=== PATIENT | male | born 1950 | race Caucasian/White ===

== ENCOUNTER 2016-11-30 08:52 | Emergency (ER) | payer OTHER ==
[2016-11-30 09:13] VITALS: BMI 25.7
--- NOTE | 2016-11-30 09:43 | PDOC ---
History of Present Illness - General Chief Complaint: Urinary Problem Stated Complaint: POST-OP COMPLICATIONS Time Seen by Provider: 11/30/16 09:20 History Source: Patient Exam Limitations: No Limitations - History of Present Illness Travel History: No Initial Comments: 11/30/16 10:16 Patient status post BPH procedure on Thursday at [facility] per urology group, Fuentes was removed on , since that time patient has noted some intermittent small clots but this morning woke up unable to urinate with some small dribbles and discomfort. Denies fever, denies nausea vomiting, denies any pain or burning. Is currently taking Levaquin as prescribed on his fifth day Timing/Duration: reports: getting worse Quality: reports: moderate, severe Pain Radiation: reports: no radiation Alleviating Factors: improves with: None Past History - Travel Traveled outside of the country in the last 30 days: No Close contact w/someone who was outside of country & ill: No - Past Medical History Allergies/Adverse Reactions: Allergies Allergy/AdvReac Type Severity Reaction Status Date / Time No Known Allergies Allergy Unverified 05/28/12 09:10 Home Medications: Ambulatory Orders Amlodipine Besylate [Norvasc] 10 mg PO DAILY 05/28/12 Simvastatin 10 mg PO DAILY 05/28/12 Calcium Carbonate/Vitamin D3 [Calcium 500 mg Chewable Tablet] 1 each PO DAILY Cholecalciferol (Vitamin D3) [Vitamin D3 -] 5,000 unit PO DAILY 11/30/16 Metoprolol Succinate [Toprol Xl] 50 mg PO HS 11/30/16 Phenazopyridine HCl [Pyridium] 100 mg PO TID 11/30/16 Tamsulosin HCl [Flomax] 0.4 mg PO DAILY 11/30/16 HTN: Yes Hypercholesterolemia: Yes Other medical history: PROSTATE - Immunization History Td Vaccination: Yes - Psycho/Social/Smoking Cessation Hx Anxiety: No Suicidal Ideation: No Smoking Status: No Smoking History: Never smoked Number of Cigarettes Smoked Daily: 0 Hx Alcohol Use: Yes (SOCIAL) Drug/Substance Use Hx: No Substance Use Type: None Abd/GI Specific PMHX - Complaint Specific PMHX Diverticulitis: No Review of Systems - Review of Systems Able to Perform ROS?: Yes Is the patient limited Russian proficient: Yes Constitutional: Yes: Symptoms Reported, See HPI, Loss of Appetite, Malaise. No : Fever HEENTM: No: Symptoms Reported Respiratory: No: Symptoms reported Cardiac (ROS): No: Symptoms Reported ABD/GI: Yes: Symptoms Reported, Abdominal cramping : Yes: Symptoms Reported, See HPI, Other (obstruction since am- onl;y small drops with noted BRB) Integumentary: No: Symptoms Reported Neurological: No: Symptoms reported All Other Systems: Reviewed and Negative *Physical Exam - Vital Signs Last Vital Signs Temp Pulse Resp BP Pulse Ox 98.3 F 73 20 158/85 97 11/30/16 08:53 11/30/16 08:53 11/30/16 08:53 11/30/16 08:53 11/30/16 08:53 - Physical Exam General Appearance: Yes: Nourished, Appropriately Dressed, Apparent Distress, Moderate Distress HEENT: positive: DON, Normal ENT Inspection, TMs Normal, Pharynx Normal Neck: positive: Supple. negative: Tender Respiratory/Chest: positive: Lungs Clear, Normal Breath Sounds Cardiovascular: positive: Regular Rate Gastrointestinal/Abdominal: positive: Soft Musculoskeletal: positive: Normal Inspection Integumentary: positive: Normal Color, Dry, Pale Neurologic: positive: ticket puller II-XII NML intact, Fully Oriented, Alert, Normal Mood/ Affect, Normal Response, Motor Strength 5/5 Progress Note - Progress Note Progress Note: Urinary retention status post prostate procedure and Fuentes removal 2 days ago. Seen Polish Fuentes catheter inserted without difficulty, draining approximately 500 mL of peridium colored urine with a few clots. Patient feels much improved. Will discuss with [facility] urology , and evaluate Urinalysis Medical Decision Making - Medical Decision Making 11/30/16 09:52 11/30/16 09:53 11/30/16 10:27 11/30/16 10:59 Urinalysis clear for UTI, +1 blood. Will discharge with leg bag and will follow- up tomorrow with urology group *DC/Admit/Observation/Transfer Diagnosis at time of Disposition: Postoperative urinary retention - Discharge Dispostion Disposition: HOME Condition at time of disposition: Stable Admit: No - Patient Instructions Printed Discharge Instructions: DI for Urinary Retention in Men Additional Instructions: Rest, drink lots of fluids today:, water, teas, avoid sugar beverage Continue to monitor to avoid blockage. Follow-up with [facility] urology tomorrow for plan and Fuentes removal when they deem necessary Return to Emergency department for worsened pain, obstruction, bleeding, fevers or other problems - Post Discharge Activity Work/School Note: Back to Work
[2016-11-30 10:48] LABS: URINE APPEARANCE CLEAR; URINE BILIRUBIN NEGATIVE (NEGATIVE); URINE GLUCOSE (UA) NEGATIVE (NEGATIVE); URINE KETONE NEGATIVE (NEGATIVE); URINE LEUK ESTERASE NEGATIVE (NEGATIVE); URINE NITRITE POSITIVE (NEGATIVE); URINE UROBILINOGEN 4.0 E.U/dl E.U./dl (0.2-1.0)
[2016-11-30 10:57] LABS: URINE BLOOD 1+ (NEGATIVE); URINE PROTEIN 1+ (NEGATIVE)
[2016-11-30 10:58] LABS: URINE COLOR DK YELLOW
[2016-11-30 11:15] VITALS: BP 142/75; PULSE 77; TEMP 98
[2016-11-30 11:34] LABS: URINE MUCUS RARE; URINE RBC 20 /hpf (0-3); URINE WBC 2 /hpf (3-5)
== END 2016-11-30 11:10 | disposition home or self-care (01) ==
LOC: JER 08:52
PROC: 0T9B70Z Drainage of Bladder with Drainage Device, Via Natural or Artificial Opening (ICD-10-PCS; principal; 2016-11-30)
DX: N99.89 Other postprocedural complications and disorders of genitourinary system (principal); I10 Essential (primary) hypertension; E78.00 Pure hypercholesterolemia, unspecified
CPT/HCPCS: 81003; 81015; 87086; 99282-25